=== PATIENT | female | born 1980 | race Two or more races ===

== ENCOUNTER 2021-05-19 08:27 | Emergency (ER) | payer SELFPAY ==
[~2021-05-19] VITALS: Ht 170.2 cm; Wt 91.3 kg
--- NOTE | 2021-05-19 10:30 | NUR ---
Pt denies hx of asthma, states she feels this is a throat problem, that it gives her the sensation of breathing through a straw. Pt states this began on Wednesday. Reports the same situation last year, at which time she was treated for asthma but denied symptom relief.
--- NOTE | 2021-05-19 10:34 | NUR ---
PEREZ Diaz to bedside for eval.
[2021-05-19] MEDS ORDERED: MAALOX/HYOSCYAMINE/LIDOCAINE 45 ML BTL ONE (11:45)
[2021-05-19] MEDS ORDERED: KETOROLAC 30 MG/1 ML ONE (11:45)
[2021-05-19 11:57] LABS: BASOPHILS % (AUTO) 1 % (0-1); EOSINOPHILS % (AUTO) 1 % (1-7); LYMPHOCYTES % (AUTO) 28 % (22-44); MEAN CORPUSCULAR HEMOGLOBIN 31.7 pg (27.0-34.8); MEAN CORPUSCULAR HGB CONC 34.1 g/dL (32.4-35.8); MEAN PLATELET VOLUME 8.3 fL (7.4-10.4); MONOCYTES % (AUTO) 6 % (2-9); NEUTROPHILS % (AUTO) 64 % (42-75); PLATELET COUNT 244 x10^3/uL (130-400); RED BLOOD COUNT 4.45 x10^6/uL (3.82-5.3); RED CELL DISTRIBUTION WIDTH 13.8 % (9.6-15.2)
[2021-05-19] MEDS ORDERED: KETOROLAC 30 MG/1 ML IM ONE (12:00)
[2021-05-19] MEDS ORDERED: MAALOX/HYOSCYAMINE/LIDOCAINE 45 ML BTL PO ONE (12:00)
[2021-05-19 12:11] LABS: ALBUMIN 3.6 g/dL (3.4-5.0); ANION GAP 5 mmol/L (5-15); CALCIUM 8.5 mg/dL (8.5-10.1); CHLORIDE 113 mmol/L (98-107); CREATININE 0.75 mg/dL (0.55-1.02)
[2021-05-19 12:15] LABS: TROPONIN I < 0.015 ng/mL (0.000-0.045)
[2021-05-19 12:38] VITALS: BP 120/85
== END 2021-05-19 12:52 | disposition home or self-care (01) ==
LOC: ED 10:20
DX: K21.00 Gastro-esophageal reflux disease with esophagitis, without bleeding (principal); R07.89 Other chest pain; J45.909 Unspecified asthma, uncomplicated; F17.210 Nicotine dependence, cigarettes, uncomplicated
CPT/HCPCS: 36415; 71045; 80048; 82040; 83880; 84484; 85025; 93005; 96372; 99285; J1885